=== PATIENT | male | born 1965 | race Caucasian/White ===

== ENCOUNTER 2018-08-25 18:41 | Emergency (ER) | payer MEDICAID ==
[~2018-08-25] VITALS: Ht 172.7 cm; Wt 58.0 kg
[~2018-08-25 18:41] MED LIST: OMEP-110 PO
--- NOTE | 2018-08-25 19:07 | NUR ---
PT IN [facility] D/T PAIN IN INGUINAL AREA. FRIEND AT BS. RV'WD POC WITH PT.
--- NOTE | 2018-08-25 19:10 | NUR ---
JHONY JARAMILLO AT BS NOW.
[2018-08-25] MEDS ORDERED: ONDANSETRON 2MG/ML, 2ML ONE (19:20)
[2018-08-25] MEDS ORDERED: MORPHINE SULFATE 4 MG/ML, 1ML ONE (19:21)
[2018-08-25] MEDS ORDERED: ONDANSETRON 2MG/ML, 2ML IVPush ONE (19:30)
[2018-08-25] MEDS ORDERED: MORPHINE SULFATE 4 MG/ML, 1ML IVPush PRN (19:30)
--- NOTE | 2018-08-25 19:35 | NUR ---
Break RN: IV placed. blood drawn. medicated for pain and nausea.
[2018-08-25 19:44] LABS: MEAN CORPUSCULAR HEMOGLOBIN 31.8 pg (27.5-34.5); MEAN CORPUSCULAR VOLUME 93.6 fL (81-97); MEAN PLATELET VOLUME 8.2 fL (7.4-10.4); PLATELET COUNT 331 x10^3/uL (130-400); RED BLOOD COUNT 5.02 x10^6/uL (4.38-5.82); RED CELL DISTRIBUTION WIDTH 13.8 % (9.4-14.8)
[2018-08-25 19:50] LABS: ALANINE AMINOTRANSFERASE 19 U/L (12-78); ANION GAP 12 mmol/L (5-15); CALCIUM 9.4 mg/dL (8.5-10.1); CHLORIDE 105 mmol/L (98-107); CREATININE 1.27 mg/dL (0.7-1.3)
[2018-08-25 19:53] LABS: ALKALINE PHOSPHATASE 92 U/L (45-117); BILIRUBIN,TOTAL 0.7 mg/dL (0.2-1.0); TOTAL PROTEIN 8.1 g/dL (6.4-8.2)
--- NOTE | 2018-08-25 20:01 | NUR ---
PT TO IMAGING VIA [facility].
[2018-08-25 20:25] LABS: BASOPHILS # (AUTO) 0.04 x10^3/uL (0-0.1); BASOPHILS % (AUTO) 0 % (0-1); EOSINOPHILS % (AUTO) 1 % (1-7); LYMPHOCYTES # (AUTO) 1.92 x10^3/uL (1-3.4); LYMPHOCYTES % (AUTO) 15 % (22-44); MD NO; MONOCYTES # (AUTO) 0.84 x10^3/uL (0.2-0.8); MONOCYTES % (AUTO) 7 % (2-9); NEUTROPHILS # (AUTO) 9.65 x10^3/uL (1.8-6.8); NEUTROPHILS % (AUTO) 77 % (42-75)
[2018-08-25 21:07] VITALS: BP 119/68
--- NOTE | 2018-08-25 21:09 | NUR ---
PER PT, HERNIA REDUCED ON ITS OWN WHILE IN ER. D/C INSTRUCTIONS & F/U APPT WITH SURGEON MANJEET'WD WITH PT, HE VERBALIZES UNDERSTANDING. PT AMBULATED OUT OF ED WITH FRIEND WITHOUT DIFFICULTY.
== END 2018-08-25 21:10 | disposition home or self-care (01) ==
LOC: ED 19:07
DX: K40.91 Unilateral inguinal hernia, without obstruction or gangrene, recurrent (principal)
CPT/HCPCS: 36415; 76857; 80053; 83605; 83690; 85025; 96374; 96375; 99284; J2270; J2405

== ENCOUNTER 2018-08-29 11:44 | Emergency (ER) | payer MEDICAID ==
[~2018-08-29] VITALS: Ht 172.7 cm; Wt 61.0 kg
[2018-08-29 12:07] VITALS: BP 133/85
== END 2018-08-29 12:48 | disposition left against medical advice (07) ==
LOC: ED 12:42
DX: R10.30 Lower abdominal pain, unspecified (principal); R11.2 Nausea with vomiting, unspecified; R19.7 Diarrhea, unspecified; R50.9 Fever, unspecified
CPT/HCPCS: 99281

== ENCOUNTER 2019-05-02 04:05 | Emergency (ER) | payer MEDICAID ==
[~2019-05-02] VITALS: Ht 170.2 cm; Wt 54.5 kg
[2019-05-02 04:14] VITALS: BP 151/88
--- NOTE | 2019-05-02 04:33 | NUR ---
PT NON COMPLIANT WITH VS EQUIP. STATES HE HAS MENTAL ISSUES AND DOESN'T WANT TO BE TIED DOWN. EQUIP REMOVED PER PT REQUEST.
[2019-05-02] MEDS ORDERED: HYDROcodone/APAP 5/325 TABLET ONE (04:52)
[2019-05-02] MEDS ORDERED: HYDROcodone/APAP 5/325 TABLET PO ONE (05:00)
--- NOTE | 2019-05-02 05:08 | NUR ---
Pt standing at side of bed using his phone. Pt states he was able to reduce his hernia. MD notified.
== END 2019-05-02 05:18 | disposition home or self-care (01) ==
LOC: ED 04:35
DX: K40.90 Unilateral inguinal hernia, without obstruction or gangrene, not specified as recurrent (principal)
CPT/HCPCS: 99283